=== PATIENT | male | born 1950 | race Caucasian/White ===

== ENCOUNTER → 2021-10-18 16:08 | Outpatient (CLI) | payer OTHER ==
[~2021-10-18 16:08] MED LIST: DIOVAN160 M1; METFORMIN HCL500 M1; NEURONTIN600 M1 PO; OSEL75CA PO; PERCOCET 5-3251 EACH PO; POLY119PG PO; TUSSI-PRES LIQ120 ML PO
== END | disposition home or self-care (01) ==
LOC: LAB 16:08
PROVIDERS: ATTEND Anesthesiology
DX: K42.9 Umbilical hernia without obstruction or gangrene (principal)

== ENCOUNTER 2021-10-19 05:50 | Day surgery (SDC) | payer OTHER ==
[~2021-10-19 05:50] MED LIST changes: -NEURONTIN600 M1 PO; -PERCOCET 5-3251 EACH PO; -POLY119PG PO
[2021-10-19] MEDS ORDERED: NEURONTIN600 M1 PO (13:09)
[2021-10-19] MEDS ORDERED: PERCOCET 5-3251 EACH PO (13:09)
[2021-10-19] MEDS ORDERED: POLY119PG PO (13:10)
== END 2021-10-19 16:00 | disposition home or self-care (01) ==
LOC: CIR.AMB 05:50
PROVIDERS: ATTEND Surgery
DX: K42.0 Umbilical hernia with obstruction, without gangrene (principal); Z20.822 Contact with and (suspected) exposure to COVID-19